=== PATIENT | female | born 1970 | race Caucasian/White ===

== ENCOUNTER 2022-11-13 06:57 | Outpatient (OUT) | payer OTHER, SELFPAY ==
[2022-11-13 07:19] LABS: Basophils Absolute Auto 0.1 10^3/uL (0.0-0.1); Basophils Percent Auto 0.5 % (0.2-2.0); Eosinophils Absolute Auto 0.2 10^3/uL (0.0-0.7); Eosinophils Percent Auto 1.4 % (0.9-7.0); Hematocrit 42.8 % (36.0-48.0); Hemoglobin 14.6 g/dL (12.0-16.0); Immature Granulocytes Abs Auto 0.03 10^3/uL (0.00-0.03); Immature Granulocytes Pct Auto 0.3 % (0.0-0.5); Lymphocytes Absolute Auto 4.3 10^3/uL (1.2-3.8); Lymphocytes Percent Auto 40.5 % (20.5-60.0); Mean Corpuscular HGB Conc 34.1 g/dL (29.9-35.2); Mean Corpuscular Hemoglobin 29.6 pg (26.7-34.0); Mean Corpuscular Volume 86.6 fL (81.0-99.0); Mean Platelet Volume 9.1 fL (9.5-13.5); Monocytes Absolute Auto 0.6 10^3/uL (0.3-0.8); Neutrophils Absolute Auto 5.5 10^3/uL (1.4-6.5); Neutrophils Percent Auto 51.3 % (43.0-75.0); Platelet Count 300 10^3/uL (150-450); Red Blood Count 4.94 10^6/uL (4.20-5.40); Red Cell Distribution Width 12.4 % (11.0-15.0); White Blood Count 10.7 10^3/uL (4.0-11.0)
[2022-11-13 07:32] LABS: Estimated Average Glucose 146 mg/dL; Glycohemoglobin A1C 6.7 % (4.5-6.2)
[2022-11-13 07:34] LABS: Alanine Aminotransferase 36 U/L (14-59); Albumin Level 3.7 g/dL (3.4-5.0); Alkaline Phosphatase 119 U/L (46-116); Aspartate Amino Transferase 25 U/L (15-37); BUN Creatinine Ratio 12.7; Bilirubin Total 0.4 mg/dL (0.2-1.0); Calcium 9.5 mg/dL (8.5-10.1); Chloride 104 mmol/L (98-107); Estimated GFR (African America >60 (>=60); Estimated GFR (Non-African Ame >60 (>=60); Globulin 3.6 g/dL; Glucose 168 mg/dL (74-106); Sodium 140 mmol/L (136-145); Total Protein 7.3 g/dL (6.4-8.2)
[2022-11-13 07:46] LABS: Chol HDL Ratio 5.4; Cholesterol 206 mg/dL (<=200); Free T3 2.86 pg/mL (2.18-3.98); HDL Cholesterol 38 mg/dL (40-60); Thyroid Stimulating Hormone 0.032 uIU/mL (0.358-3.740); Triglycerides 359 mg/dL (<=150); VLDL CHOLESTEROL 71.8 mg/dL
== END 2022-11-13 06:58 | disposition home or self-care (01) ==
LOC: LAB 07:01
PROVIDERS: PCP Family Medicine; Visit Provider Family Medicine
DX: Z00.00 Encounter for general adult medical examination without abnormal findings (principal)
CPT/HCPCS: 36415; 80053; 80061; 83036; 84436; 84443; 84481; 85025

== ENCOUNTER 2023-08-06 08:42 | Outpatient (OUT) | payer OTHER, SELFPAY ==
[2023-08-06 09:11] LABS: Basophils Absolute Auto 0.1 10^3/uL (0.0-0.1); Basophils Percent Auto 0.5 % (0.2-2.0); Eosinophils Absolute Auto 0.2 10^3/uL (0.0-0.7); Eosinophils Percent Auto 1.5 % (0.9-7.0); Hematocrit 44.1 % (36.0-48.0); Hemoglobin 15.2 g/dL (12.0-16.0); Immature Granulocytes Abs Auto 0.02 10^3/uL (0.00-0.03); Immature Granulocytes Pct Auto 0.2 % (0.0-0.5); Lymphocytes Absolute Auto 4.2 10^3/uL (1.2-3.8); Lymphocytes Percent Auto 42.2 % (20.5-60.0); Mean Corpuscular HGB Conc 34.5 g/dL (29.9-35.2); Mean Corpuscular Hemoglobin 29.9 pg (26.7-34.0); Mean Corpuscular Volume 86.6 fL (81.0-99.0); Mean Platelet Volume 9.4 fL (9.5-13.5); Monocytes Absolute Auto 0.5 10^3/uL (0.3-0.8); Monocytes Percent Auto 5.3 % (1.7-12.0); Neutrophils Percent Auto 50.3 % (43.0-75.0); Platelet Count 325 10^3/uL (150-450); Red Blood Count 5.09 10^6/uL (4.20-5.40); Red Cell Distribution Width 11.9 % (11.0-15.0)
[2023-08-06 10:28] LABS: Alanine Aminotransferase 38 U/L (14-59); Albumin Level 3.7 g/dL (3.4-5.0); Alkaline Phosphatase 120 U/L (46-116); Aspartate Amino Transferase 35 U/L (15-37); BUN Creatinine Ratio 12.3; Bilirubin Total 0.4 mg/dL (0.2-1.0); Calcium 9.8 mg/dL (8.5-10.1); Carbon Dioxide 25.4 mmol/L (21.0-32.0); Chol HDL Ratio 5.8; Cholesterol 219 mg/dL (<=200); Estimated GFR (African America >60 (>=60); Estimated GFR (Non-African Ame >60 (>=60); Free T3 3.77 pg/mL (2.18-3.98); Globulin 3.8 g/dL; Glucose 147 mg/dL (74-106); HDL Cholesterol 38 mg/dL (40-60); Thyroid Stimulating Hormone 0.038 uIU/mL (0.358-3.740); Total Protein 7.5 g/dL (6.4-8.2); Triglycerides 268 mg/dL (<=150); VLDL CHOLESTEROL 53.6 mg/dL
[2023-08-06 10:39] LABS: Anion Gap 15.8; Chloride 104 mmol/L (98-107); Potassium 4.2 mmol/L (3.5-5.1); Sodium 141 mmol/L (136-145)
[2023-08-06 11:25] LABS: Estimated Average Glucose 140 mg/dL; Glycohemoglobin A1C 6.5 % (4.5-6.2)
[2023-08-07 10:09] LABS: Insulin 19.1 uIU/mL (2.6-24.9)
== END 2023-08-06 08:43 | disposition home or self-care (01) ==
PROVIDERS: PCP Family Medicine; Visit Provider Family Medicine
DX: R53.83 Other fatigue (principal); E05.01 Thyrotoxicosis with diffuse goiter with thyrotoxic crisis or storm; E78.5 Hyperlipidemia, unspecified; R73.09 Other abnormal glucose; D64.9 Anemia, unspecified; E55.9 Vitamin D deficiency, unspecified
CPT/HCPCS: 36415; 80053; 80061; 82306; 83036; 83525; 83540; 84436; 84443; 84481; 85025

== ENCOUNTER 2023-10-07 09:34 | Outpatient (OUT) | payer OTHER, SELFPAY ==
--- OUTSIDE RECORDS SUMMARY | 2023-12-29 08:51 | XMS_ITS | CCD ---
Author Organization [facility] Care Team Providers Care Hand Hardener Name Role Phone DR JORDAN RODRIGUEZ Admitting Unavailable JENNIFER, DR ORTEGA Attending Unavailable JENNIFER, DR ORTEGA Primary Care Unavailable DR JORDAN RODRIGUEZ Consulting Unavailable DANNI GORDO Referring Unavailable DANNI GORDO Primary Care Unavailable DANNI GORDO Primary Care Unavailable MORGAN DAWKINS Attending Unavailable RAZO, GORDO Referring Unavailable RAZO, GORDO Primary Care Unavailable RAZO, GORDO Referring Unavailable YASIR VILLALTA Primary Care Unavailable RAZO GORDO Referring Unavailable RAZO, GORDO Primary Care Unavailable Allergies Allergy Classification Reported Allergen(s) Allergy Type Date of Onset Reaction(s) Facility (1 source) Penicillin Drug Allergy [facility] Repository (1 source) Sulfonamides (Antibiotic) Drug allergy (disorder) [facility] Problems Problem Classification Problem Date Documented Da te Episodic/Chronic Cardiac dysrhythmias (1 source) Palpitations; Translations: [Palpitations] Onset: 12-22-2023 Episodic Diabetes mellitus without complication (1 source) Type 2 diabetes mellitus without complications; Translations: [Type 2 diabetes mellitus without complications] Onset: 10-28-2023 Chronic Diabetes mellitus without complication (1 source) Hyperglycemia, unspecified; Translations: [HYPERGLYCEMIA UNSPECIFIED] Onset: 09-20-2021 Episodic Essential hypertension (4 sources) Essential (primary) hypertension; Translations: [ESSENTIAL PRIMARY HYPERTENSION] Onset: 09-17-2021 Chronic Malaise and fatigue (1 source) Other fatigue; Translations: [OTHER FATIGUE] Onset: 09-20-2021 Episodic Nutritional deficiencies (1 source) Vitamin D deficiency, unspecified; Translations: [VITAMIN D DEFICIENCY UNSPECIFIED] Onset: 09-20-2021 Chronic Other non-traumatic joint disorders (3 sources) Pain in right knee; Translations: [Pain in right knee] Onset: 11-25-2023 Episodic Other screening for suspected conditions (not mental disorders or infectious disease) (1 source) Encounter for screening for malignant neoplasm of rectum; Translations: [ENC SCREEN MALIG NEOPLASM RECTUM] Onset: 09-20-2021 Episodic Sprains and strains (1 source) Strain of unspecified muscle(s) and tendon(s) at lower leg level, right leg, initial encounter; Translations: [Strain of unspecified muscle(s) and tendon(s) at lower leg level, right leg, initial encounter] Onset: 11-29-2023 Episodic Thyroid disorders (1 source) Hypothyroidism, unspecified; Translations: [Hypothyroidism, unspecified] Onset: 10-28-2023 Chronic Results Test Name Value Interpretation Reference Range Facil ity XR KNEE RIGHT (1-2 VIEWS)on 11-25-2023 XR KNEE RIGHT (1-2 VIEWS) EXAMINATION: TWO XRAY VIEWS OF THE RIGHT KNEE 11/25/2023 9:09 am COMPARISON: None. HISTORY: ORDERING SYSTEM PROVIDED HISTORY: Right knee pain, unspecified chronicity TECHNOLOGIST PROVIDED HISTORY: right knee pain FINDINGS: No radiographic evidence of acute fracture or dislocation seen. The joint spaces appear preserved radiographically. No significant joint effusion seen. No radiopaque foreign body seen. IMPRESSION: No radiographic evidence of acute osseous abnormality of the right knee seen. The joint spaces appear preserved radiographically. Interpreted by: Ramiro Diallo MD Signed by: Ramiro Diallo MD 11/25/23 Final result Normal [facility] Hemoglobin A1Con 10-28-2023 Glucose [Mass/Vol] 126 mg/dL Normal [facility] Comment on above: Result Comment: The ADA and AACC recommend providing the estimated average glucose result to permit better patient understanding of their HBA1c result. Performed By: #### G LYHGB, FT3 #### [facility] [address], [place] [id number] Instructor Physical: Arnaldo Delacruz MD HbA1c (Bld) [Mass fraction] 6.0 % Normal 4.0-6.0 [facility] Comment on above: Performed By: #### G LYHGB, FT3 #### [facility] [address], [place] [id number] Instructor Physical: Arnaldo Delacruz MD T3, Freeon 10-28-2023 Free T3 [Mass/Vol] 3.50 pg/mL Normal 2.00-4.40 [facility] Comment on above: Performed By: #### G LYHGB, FT3 #### [facility] [address], [place] [id number] Instructor Physical: Arnaldo Delacruz MD Thyroid Stim. Horm.on 2023 Thyroid Stim. Horm. <0.01 Low 0.30-5.00 [facility] Comment on above: Performed By: #### F T4 #### [facility] [address] [place] [id number] Instructor Physical: Arnaldo Delacruz MD #### TSH #### [facility] [address] [place] [address] [place], [place] [id number] Instructor Physical: Oliver Nair MD Thyroxine, [facility] 10-28-2023 Thyroxine, Free 1.9 ng/dL High 0.92-1.68 [facility] Comment on above: Performed By: #### F T4 #### [facility] [address] [place] [address] Instructor Physical: Arnaldo Delacruz MD #### TSH #### [facility] [address] [place], [place] [id number] Instructor Physical: Oliver Nair MD CBC AUTO DIFFon 09-17-2021 BASO # 0.0 103/ul Normal 0.0-0.1 [facility] Comment on above: Performed By: #### C BC #### [facility] [address] [address] [address] Dylan Padron Basophils/100 WBC (Bld) 0.4 % Normal 0.2-2.0 [facility] Comment on above: Performed By: #### C BC #### [facility] [address] [address] [address] Dylan Padron EO # 0.2 103/ul Normal 0.0-0.7 [facility] Comment on above: Performed By: #### C BC #### [facility] [address] [address] [address] Dylan Padron Eosinophils/100 WBC (Bld) 2.2 % Normal 0.9-7.0 [facility] Comment on above: Performed By: #### C BC #### [facility] [address] [place] [address] Dr. Dylan Padron Erythrocyte distribution width (RBC) [Ratio] 12.4 % Normal 11.0-15.0 [facility] Comment on above: Performed By: #### C BC #### [facility] [address] [place] [address] Dr. Dylan Padron Hematocrit (Bld) [Volume fraction] 40.3 % Normal 36.0-48.0 [facility] Comment on above: Performed By: #### C BC #### [facility] [address] [place] [address] Dr. Dylan Padron Hemoglobin (Bld) [Mass/Vol] 13.4 g/dL Normal 12.0-16.0 [facility] Comment on above: Performed By: #### C BC #### [facility] [address] [place] [address] Dr. Dylan Padron IG # 0.04 10e3/ul Critically high 0.00-0.03 [facility] Comment on above: Performed By: #### C BC #### [facility] [address] [place] [address] Dr. Dylan Padron IG % 0.4 % Normal 0.0-0.5 [facility] Comment on above: Performed By: #### C BC #### [facility] [address] [place] [address] Dr. Dylan Padron LYMPH # 4.3 103/ul Critically high 1.2-3.8 [facility] Comment on above: Performed By: #### C BC #### [facility] [address] [place] [address] Dr. Dylan Padron Lymphocytes/100 WBC (Bld) 44.1 % Normal 20.5-60.0 [facility] Comment on above: Performed By: #### C BC #### [facility] [address] [place] [address] Dr. Dylan Padron MANUAL DIFF REQ NO Normal [facility] Comment on above: Performed By: #### C BC #### [facility] [address] [place] [address] Dr. Dylan Padron MCH (RBC) [Entitic mass] 29.3 pg Normal 26.7-34.0 [facility] Comment on above: Performed By: #### C BC #### [facility] [address] [place] [address] Dr. Dylan Padron MCHC (RBC) [Mass/Vol] 33.3 g/dL Normal 29.9-35.2 [facility] Comment on above: Performed By: #### C BC #### [facility] [address] [place] [address] Dr. Dylan Padron MCV (RBC) [Entitic vol] 88.2 fL Normal 81.0-99.0 [facility] Comment on above: Performed By: #### C BC #### [facility] [address] [place] [address] Dr. Dylan Padron MONO # 0.6 103/ul Normal 0.3-0.8 [facility] Comment on above: Performed By: #### C BC #### [facility] [address] [place] [address] Dr. Dylan Padron Monocytes/100 WBC (Bld) 6.1 % Normal 1.7-12.0 [facility] Comment on above: Performed By: #### C BC #### [facility] [address] [place] [address] Dr. Dylan Padron NEUT # 4.6 103/ul Normal 1.4-6.5 [facility] Comment on above: Performed By: #### C BC #### [facility] [address] [place] [address] Dr. Dylan Padron Neutrophils/100 WBC (Bld) 46.8 % Normal 43.0-75.0 [facility] Comment on above: Performed By: #### C BC #### [facility] [address] [place] [address] Dr. Dylan Padron Platelet mean volume (Bld) [Entitic vol] 9.0 fL Critically low 9.5-13.5 [facility] Comment on above: Performed By: #### C BC #### [facility] [address] [place] [address] Dr. Dlyan Padron PLT 264 103/ul Normal 150-450 [facility] Comment on above: Performed By: #### C BC #### [facility] [address] [place] [address] Dr. Dylan Padron RBC 4.57 106/ul Normal 4.20-5.40 [facility] Comment on above: Performed By: #### C BC #### [facility] [address] [place] [address] Dr. Dylan Padron WBC 9.7 103/ul Normal 4.0-11.0 [facility] Comment on above: Performed By: #### C BC #### [facility] [address] [place] [address] Dr. Dylan Padron FREE T3on 09-17-2021 FREE T3 3.75 pg/mlL Normal 2.18-3.98 [facility] Comment on above: Performed By: #### F T3, TSH, T4, CMP, LIPID #### [facility] [address] [place] [address] Dr. Dylan Padron GLYCOHEMOGLOBIN A1Con 2021 ADA RECOMMENDATION SEE BELOW Normal [facility] Comment on above: Result Comment: ADA RECOMMENDED LIMIT 4.0 - 6.0 ADA THERAPEUTIC TARGET < 7.0 ACTION SUGGESTED > 7.0 Performed By: #### A 1C #### [facility] [address] [place] [address] Dr. Dylan Padron Glucose [Mass/Vol] 131 mg/dL Normal [facility] Comment on above: Performed By: #### A 1C #### [facility] [address] [place] [address] Dr. Dylan Padron HbA1c (Bld) [Mass fraction] 6.2 % Normal 4.5-6.2 [facility] Comment on above: Performed By: #### A 1C #### [facility] [address] [address] [address] Dylan Padron LIPID PROFILEon 09-17-2021 CHOL-HDL RATIO NORM SEE BELOW Normal [facility] Comment on above: Result Comment: 3.3 - 4.4 LOW RISK 4.4 - 7.1 AVERAGE RISK 7.1 - 11.0 MODERATE RISK >11.0 HIGH RISK Performed By: #### F T3, TSH, T4, CMP, LIPID #### [facility] [address] [address] [address] Dylan Padron Cholesterol [Mass/Vol] 273 mg/dL Critically high <=200 [facility] Comment on above: Performed By: #### F T3, TSH, T4, CMP, LIPID #### [facility] [address] [address] [address] Dylan Padron Cholesterol in HDL [Mass/Vol] 36 mg/dL Critically low 40-60 [facility] Comment on above: Performed By: #### F T3, TSH, T4, CMP, LIPID #### [facility] [address] [address] [address] Dylan Padron Cholesterol in LDL [Mass/Vol] 157.4 mg/dL Normal [facility] Comment on above: Performed By: #### F T3, TSH, T4, CMP, LIPID #### [facility] [address] [address] [address] Dylan Padron Cholesterol.total/Cho lesterol in HDL [Mass ratio] 7.6 {ratio} Normal [facility] Comment on above: Performed By: #### F T3, TSH, T4, CMP, LIPID #### [facility] [address] [address] [address] Dylan Padron HDL NORMAL > or = 60 mg/dl - LOW CARDIOVASCULAR RISK <40 mg/dl - HIGH CARDIOVASCULAR RISK Normal [facility] Comment on above: Performed By: #### F T3, TSH, T4, CMP, LIPID #### [facility] [address] [address] [address] Dylan Padron LDL CALC NORMAL SEE BELOW Normal [facility] Comment on above: Result Comment: <100 mg/dl OPTIMAL 100 - 129 mg/dl NEAR OR ABOVE OPTIMAL 130 - 159 mg/dl BORDERLINE HIGH 160 - 189 mg/dl HIGH >190 mg/dl VERY HIGH Performed By: #### F T3, TSH, T4, CMP, LIPID #### [facility] [address] [address] [address] Dylan Padron Triglyceride [Mass/Vol] 398 mg/dL Critically high <=150 [facility] Comment on above: Performed By: #### F T3, TSH, T4, CMP, LIPID #### [facility] [address] [address] [address] Dylan Padron VLDL CALC 79.6 mg/dL Normal [facility] Comment on above: Performed By: #### F T3, TSH, T4, CMP, LIPID #### [facility] [address] [address] [address] Dylan Padron PROF 14(COMP METB)on 022 Albumin [Mass/Vol] 3.4 g/dL Normal 3.4-5.0 [facility] Comment on above: Performed By: #### F T3, TSH, T4, CMP, LIPID #### [facility] [address] [address] [address] Dylan Padron Albumin/Globulin [Mass ratio] 1.0 {ratio} Normal [facility] Comment on above: Performed By: #### F T3, TSH, T4, CMP, LIPID #### [facility] [address] [address] [address] Dylan Padron ALP [Catalytic activity/Vol] 123 U/L Critically high 46-116 [facility] Comment on above: Performed By: #### F T3, TSH, T4, CMP, LIPID #### [facility] [address] [address] [address] Dylan Padron ALT [Catalytic activity/Vol] 34 U/L Normal 14-59 [facility] Comment on above: Performed By: #### F T3, TSH, T4, CMP, LIPID #### [facility] [address] [address] [address] Dylan Padron Anion gap [Moles/Vol] 8.8 mmol/L Normal [facility] Comment on above: Performed By: #### F T3, TSH, T4, CMP, LIPID #### [facility] [address] [address] [address] Dylan Padron AST [Catalytic activity/Vol] 22 U/L Normal 15-37 [facility] Comment on above: Performed By: #### F T3, TSH, T4, CMP, LIPID #### [facility] [address] [address] [address] Dylan Padron Bilirubin [Mass/Vol] 0.3 mg/dL Normal 0.2-1.0 [facility] Comment on above: Performed By: #### F T3, TSH, T4, CMP, LIPID #### [facility] [address] [address] [address] Dylan Padron Calcium [Mass/Vol] 8.6 mg/dL Normal 8.5-10.1 [facility] Comment on above: Performed By: #### F T3, TSH, T4, CMP, LIPID #### [facility] [address] [address] [address] Dylan Padron Chloride [Moles/Vol] 106 mmol/L Normal 98-107 [facility] Comment on above: Performed By: #### F T3, TSH, T4, CMP, LIPID #### [facility] [address] [address] [address] Dylan Padron CO2 [Moles/Vol] 28.1 mmol/L Normal 21.0-32.0 [facility] Comment on above: Performed By: #### F T3, TSH, T4, CMP, LIPID #### [facility] [address] [address] [address] Dylan Padron Creatinine [Mass/Vol] 0.66 mg/dL Normal 0.55-1.02 [facility] Comment on above: Performed By: #### F T3, TSH, T4, CMP, LIPID #### [facility] [address] [address] [address] Dylan Padron EGFR-AF SWEDISH >60 Normal >=60 [facility] Comment on above: Performed By: #### F T3, TSH, T4, CMP, LIPID #### [facility] [address] [place] [address] Dr. Dylan Padron EGFR-NON AF SWEDISH >60 Normal >=60 [facility] Comment on above: Performed By: #### F T3, TSH, T4, CMP, LIPID #### [facility] [address] [place] [address] Dr. Dylan Padron Globulin (S) [Mass/Vol] 3.5 g/dL Normal [facility] Comment on above: Performed By: #### F T3, TSH, T4, CMP, LIPID #### [facility] [address] [place] [address] Dr. Dylan Padron Glucose [Mass/Vol] 132 mg/dL Critically high 74-106 T [facility] Comment on above: Performed By: #### F T3, TSH, T4, CMP, LIPID #### [facility] [address] [place] [address] Dr. Dylan Padron Potassium [Moles/Vol] 3.9 mmol/L Normal 3.5-5.1 [facility] Comment on above: Performed By: #### F T3, TSH, T4, CMP, LIPID #### [facility] [address] [place] [address] Dr. Dylan Padron Protein [Mass/Vol] 6.9 g/dL Normal 6.4-8.2 [facility] Comment on above: Performed By: #### F T3, TSH, T4, CMP, LIPID #### [facility] [address] [place] [address] Dr. Dylan Padron Sodium [Moles/Vol] 139 mmol/L Normal 136-145 [facility] Comment on above: Performed By: #### F T3, TSH, T4, CMP, LIPID #### [facility] [address] [place] [address] Dr. Dylan Padron Urea nitrogen [Mass/Vol] 11.0 mg/dL Normal 7.0-18.0 [facility] Comment on above: Performed By: #### F T3, TSH, T4, CMP, LIPID #### [facility] [address] [place] [address] Dr. Dylan Padron Urea nitrogen/Creatinine [Mass ratio] 16.7 mg/mg Normal [facility] Comment on above: Performed By: #### F T3, TSH, T4, CMP, LIPID #### [facility] [address] [place] [address] Dr. Dylan Padron T4on 09-17-2021 T4 [Mass/Vol] 8.80 ug/dL Normal 4.80-13.90 [facility] Comment on above: Performed By: #### F T3, TSH, T4, CMP, LIPID #### [facility] [address] [place] [address] Dr. Dylan Padron TSHon 09-17-2021 TSH Qn m[IU]/L Critically low 0.358-3.740 [facility] Comment on above: Performed By: #### F T3, TSH, T4, CMP, LIPID #### [facility] [address] [place] [address] Dr. Dylan Padron TSH RANGE SEE BELOW Normal [facility] Comment on above: Result Comment: <0.3 4 UIU/ml HYPERTHYROID 0.34-5.60 UIU/ml EUTHYROID >5.60 UIU/ml HYPOTHYROID Performed By: #### F T3, TSH, T4, CMP, LIPID #### [facility] [address] [place] [address] Dr. Dylan Padron VITAMIN D 25 OHon 09-17-2021 VIT D 25-OH 16.9 ng/mL Normal [facility] Comment on above: Performed By: #### V ITAD #### [facility] [address] [place] [address] Dr. Dylan Padron VIT D RANGES SEE BELOW Normal [facility] Comment on above: Result Comment: <20 ng/mL Vit D deficient 20 - <30 ng/mL Vit D insufficient 30 - 100 ng/mL Vit D sufficient >100 ng/mL Potential Toxicity Performed By: #### V ITAD #### [facility] [address] [place] [address] Dr. Dylan Padron Encounters Encounter Date Encounter Type Care Provider Facility Start: 12-22-2023 End: 12-24-2023 ambulatory [facility] Start: 11-29-2023 End: 11-29-2023 Emergency department patient visit [facility] Start: 11-25-2023 End: 11-27-2023 ambulatory [facility] Start: 10-28-2023 End: 10-28-2023 ambulatory [facility] Start: 09-17-2021 End: 09-18-[address] JORDAN RODRIGUEZ Facility:[facility] Payers Date Payer Category Payer Private Health Insurance [id number] 1970 Unknown [id number] [id number] [id number] 1970 Unknown [id number] 2.16.8 [id number] 1969 Unknown [id number] 2.16.8 [id number] 1969 Unknown [id number] 2.16.8 [id number] 1969 Unknown [id number] 2.16.8 [id number] 1969 Unknown [id number] 2.16.8 [id number] 1959 Private Health Insurance [id number] Summary Purpose Family History No Family History Records FoundNo Family History Records Found Advance Directives No Advanced Directives Records FoundNo Advanced Directives Records Found Additional Source Comments INFORMATION SOURCE (unrecogn ized section and content) DATE CREATED AUTHOR 09/21/2021 [facility] DATE CREATED AUTHOR AUTHOR'S ORGANIZ ATCHICO 12/26/2023 [facility] FOR RECORDS PERTAINING TO PATIENTS WHO ARE OR HAVE BEEN ENROLLED IN A CHEMICAL DEPENDENCY/SUBSTANCEABUSE PROGRAM, SOME INFORMATION MAY BE OMITTED. This clinical summary was aggregated from multiple sources. Caution should be exercised in using it in the provision of clinical care. This summary normalizes information from multiple sources, and as a consequence, information in this document may materially change the coding, format and clinical context of patient data. In addition, data may be omitted in some cases. CLINICAL DECISIONS SHOULD BE BASED ON THE PRIMARY CLINICAL RECORDS. [facility]. provides no warranty or guarantee of the accuracy or completeness of information in this document.
== END 2023-10-07 23:59 | disposition home or self-care (01) ==
LOC: MN 12-29 08:48
PROVIDERS: PCP Family Medicine; Visit Provider Family Medicine
DX: E11.9 Type 2 diabetes mellitus without complications (principal)
CPT/HCPCS: 95250; G0108